=== PATIENT | female | born 1965 | race Caucasian/White ===

== ENCOUNTER 2023-05-23 10:38 | Emergency (ER) | payer OTHER, SELFPAY ==
[2023-05-23 11:01] VITALS: BP 172/113
[2023-05-23 11:16] LABS: % Basophils 1.5 % (0-2); % Eosinophils 1.9 % (0-6); % Immature Granulocytes 0.2 % (0-0.5); % Lymphocytes 26.7 % (20.5-51.1); % Monocytes 7.4 % (1.7-9.3); % Neutrophils 62.3 % (42.2-75.2); Absolute Basophils 0.1 10^3/uL (0-0.2); Absolute Eosinophils 0.1 10^3/uL (0-0.7); Absolute Lymphocytes 1.4 10^3/uL (1.2-3.4); Absolute Monocytes 0.4 10^3/uL (0.1-0.6); Absolute Neutrophils 3.4 10^3/uL (1.4-6.5); Hematocrit 38.8 % (37.0-47.0); Hemoglobin 13.4 g/dL (12.0-16.0); Mean Corp Hgb Conc. 34.5 g/dL (33.0-37.0); Mean Corpuscular Hgb 30.7 pg (27.0-31.0); Mean Corpuscular Volume 88.8 fL (81.0-99.0); Mean Platelet Volume 9.5 fL (7.4-10.4); Nucleated Red Blood Cells % 0 %; Platelet Count 295 10^3/uL (130-400); Red Blood Cell Count 4.37 10^6/uL (4.20-5.40); Red Cell Dist. Width 11.9 % (11.5-14.5); White Blood Cell Count 5.4 10^3/uL (4.8-10.8)
[2023-05-23 11:34] LABS: ALT (SGPT) 16 U/L (0-35); AST (SGOT) 26 U/L (14-36); Albumin 4.8 g/dl (3.5-5.0); Alkaline Phosphatase 93 U/L (38-126); Blood Urea Nitrogen 17 mg/dl (7-17); Calcium 9.6 mg/dl (8.4-10.2); Carbon Dioxide 27 mmol/L (22-30); Chloride 106 mmol/L (98-107); Glucose 103 mg/dl (70-99); Potassium 4.5 mmol/L (3.5-5.1); Sodium 138 mmol/L (135-145); Total Bilirubin 0.7 mg/dl (0.2-1.3); Total Protein 7.4 g/dl (6.3-8.2); eGFR > 60.00
[2023-05-23 11:45] LABS: Troponin I < 0.012 ng/ml
[2023-05-23 12:45] VITALS: BP 179/100
--- NOTE | 2023-05-23 13:41 | ED.GENMED ---
History of Present Illness
General
Chief Complaint: Chest Pain
Source: patient
Exam Limitations: none
Time Seen by Provider: 05/23/23 13:27
Travel History
Have you had any contact with someone who has COVID-19?: No
Do you have any symptoms of coronavirus? Fever > 100 degrees, chills, cough, shortness of breath, sore throat, loss of taste or smell, muscle aches, or headache?: No
History of Present Illness
History of Present Illness:
57-year-old female otherwise healthy presents with onset of achy discomfort last evening in her chest that was intermittent. This is very mild. There was no associated diaphoresis nausea or shortness of breath. This morning when she woke up the
pain was gone however she had some left arm discomfort this morning. Since waiting in the waiting room and for the past 2 hours she has been send she denies any recent travel or surgery. She does not smoke. She has remote history of breast cancer
requiring lumpectomy only. No leg swelling or calf pain. She has no family history of cardiac disease of which her mother developed coronary artery disease in her 50s. She is never seen a load blocker. No fever or cough. No other complaints at
this time
Past History
Past History
ED Past Medical History: Cancer
ED Past Surgical History: Other (L lumpectomy)
Phy Exam
Physical Exam
Physical Exam:
General: Well-appearing female no acute respiratory distress
HEENT: Normocephalic atraumatic
Heart: Regular rate and rhythm no murmur
Lungs: Clear to auscultation bilaterally no wheezing
Extremities: No cyanosis or edema
Skin: warm, no rashes
Scores
Heart Score for Chest Pain Patients
STEMI patient?: No
History: Slightly or Non-Suspicious
ECG: Normal
Age: >45 - <65 years
Risk Factors: 1 or 2 Risk Factors
Troponin: </= Normal Limit
Heart Score for Chest Pain Patients: 2
Heart Score Risk: 2.5% MACE over next 6 weeks
Course
Orders/Labs/Results
Orders:
Orders
05/23/23 11:04
EKG [Electrocardiogram (*1)] Urgent
Reason for Study: Chest Pain
EKG- Treatment ONCE
05/23/23 11:10
Complete Blood Count/With Diff Urgent
Comprehensive Metabolic Panel Urgent
Troponin I Urgent
05/23/23 12:38
CXR2 [CR Chest - 2 Views ] Urgent
Comment:
Reason For Exam: chest pain
Abnormal Lab Results
05/23/23
11:10
Glucose 103 H mg/dl
(70-99)
05/23/23 11:10
05/23/23 11:10
Vital Signs
Initial and Last Documented VS:
Initial Vital Signs
Temp Pulse Resp BP Pulse Ox
99.7 F 80 16 172/113 99
05/23/23 11:01 05/23/23 11:01 05/23/23 11:01 05/23/23 11:01 05/23/23 11:01
Last Documented Vital Signs
Temp Pulse Resp BP Pulse Ox
99.7 F 95 18 179/100 97
05/23/23 11:01 05/23/23 12:45 05/23/23 12:45 05/23/23 12:45 05/23/23 12:45
MDM/Problems Addressed
Differential Diagnosis Includes:
Chest pain, atypical. This is not exertional or pleuritic. Do not suspect PE with stable vital signs and no risk factors. Family history of coronary artery disease consider ACS. Will check EKG troponin and labs. Chest x-ray ordered as well.
Pain is now gone. Vital signs are stable. Do not suspect dissection
*Critical Care Note
Total Time (30-74mins, 75-104mins- exclusive of procedures): Not Applicable
Update Note
Update Note:
Troponin undetectable EKG shows sinus rhythm chest x-ray clear. Symptoms have resolved. Do not suspect ACS however given the family history of coronary artery disease will provide chest pain follow-up. Consider repeat troponin however him started
yesterday and should definitely be enough elapsed time to allow for an elevated troponin if it were to be the case. I explained this to the patient and significant other. They were in agreement. Stable for discharge
ED Attending Note
-
Portions of this chart may have been created with voice recognition software.� Occasional wrong word or��sound alike� substitutions may have occurred due to the inherent limitations of voice recognition software.
Discharge Plan
Departure
Patient Disposition: Home (Routine Discharge)
Date of Disposition: 05/23/23
Time of Disposition: 13:46
Patient with high blood pressure during this ER visit?: No
Discharge Problem:
Chest pain
Instructions: Chest Pain DCA Follow Up
Prescriptions:
No Action
cephalexin 500 MG capsule
500 mg PO QID Qty: 28 0RF
Referrals:
Dani Saul MD [Family Provider] -
Activity Restrictions/Additional Instructions:
Please return here for any persistent or worsening or concerning findings. Follow-up with cardiology otherwise
Interventions
Interventions:
*Risk Screen - Suicide Last Done: 05/23/23 12:49
*General Assessment Last Done: 05/23/23 11:01
*Neglect/Abuse Screening Last Done: 05/23/23 12:49
ED- Fall Risk Assessment Last Done: 05/23/23 12:48
*ED COVID-19 Vaccine History Last Done: 05/23/23 11:01
ED- Cardiac Assessment Last Done: 05/23/23 12:44
== END 2023-05-23 14:11 | disposition home or self-care (01) ==
LOC: EMR 10:38
PROVIDERS: EMERGENCY PHYSICIAN Emergency Medicine; FAMILY PHYSICIAN Family Medicine
DX: R07.89 Other chest pain (principal); Z82.49 Family history of ischemic heart disease and other diseases of the circulatory system
CPT/HCPCS: 99285; 71046; 80053; 84484; 85025; 93005

== ENCOUNTER → 2023-07-23 12:56 | Outpatient (REF) | payer OTHER, SELFPAY | LOC: DHCBS MAIN 12:56 | PROVIDERS: ATTENDING PHYSICIAN Internal Medicine Interventional Cardiology; FAMILY PHYSICIAN Family Medicine | DX: R07.9 Chest pain, unspecified (principal) | CPT/HCPCS: 93306 ==

== ENCOUNTER → 2024-11-02 13:31 | Outpatient (REF) | payer OTHER, SELFPAY | LOC: HWWDC 13:31 | PROVIDERS: ATTENDING PHYSICIAN Nurse Practitioner Family | DX: Z12.31 Encounter for screening mammogram for malignant neoplasm of breast (principal) | CPT/HCPCS: 77063; 77067 ==

== ENCOUNTER 2025-01-24 06:21 | Day surgery (SDC) | payer BC, SELFPAY | END 2025-01-24 14:09 | disposition home or self-care (01) | LOC: GI 06:21 | PROVIDERS: ATTENDING PHYSICIAN Internal Medicine | DX: Z12.11 Encounter for screening for malignant neoplasm of colon (principal); D12.2 Benign neoplasm of ascending colon; K64.9 Unspecified hemorrhoids; Z86.0101 Personal history of adenomatous and serrated colon polyps | CPT/HCPCS: 45385; 88305 ==